=== PATIENT | female | born 1955 | race Caucasian/White ===

== ENCOUNTER 2016-11-15 08:50 | Emergency (ER) | payer OTHER ==
[2016-11-15 09:32] VITALS: BP 133/61
--- NOTE | 2016-11-15 09:44 | UC ---
Lower Extremity/Ankle HPI - HPI Summary HPI Summary: 61 yo female with left foot pain x 6 days no trauma progressive swelling and pain - History of Current Complaint Chief Complaint: UCLowerExtremity Stated Complaint: FOOT PAIN Time Seen by Provider: 11/15/16 09:21 Onset/Duration: Gradual Onset, Lasting Days Severity Initially: Mild Severity Currently: Mild Pain Intensity: 3 - worse with wt bearing Pain Scale Used: 0-10 Numeric Aggravating Factor(s): Standing, Ambulation Alleviating Factor(s): Rest, Elevation Able to Bear Weight: Yes - Allergies/Home Medications Allergies/Adverse Reactions: Allergies Allergy/AdvReac Type Severity Reaction Status Date / Time No Known Allergies Allergy Verified 11/15/16 09:25 PMH/Surg Hx/FS Hx/Imm Hx Previously Healthy: Yes Endocrine History: Dyslipidemia Cardiovascular History: Hypertension - Surgical History Surgical History: None - Family History Known Family History: Positive: Hypertension, Other - gout - Social History Alcohol Use: Occasionally Substance Use Type: None Smoking Status (MU): Never Smoked Tobacco Review of Systems Constitutional: Negative Skin: Negative Eyes: Negative ENT: Negative Respiratory: Negative Cardiovascular: Negative Gastrointestinal: Negative Genitourinary: Negative Motor: Negative Neurovascular: Negative Musculoskeletal: Myalgia Neurological: Negative Psychological: Negative All Other Systems Reviewed And Are Negative: Yes Physical Exam Triage Information Reviewed: Yes Appearance: Well-Appearing, No Pain Distress, Well-Nourished Vital Signs: Initial Vital Signs Temp 97.8 F 11/15/16 09:27 Pulse 69 11/15/16 09:27 Resp 18 11/15/16 09:27 BP 133/61 11/15/16 09:27 Pulse Ox 100 11/15/16 09:27 Eyes: Positive: Conjunctiva Clear ENT: Positive: Hearing grossly normal. Negative: Nasal congestion, Nasal drainage, Trismus, Muffled/hoarse voice Neck: Positive: Supple, Nontender Respiratory: Positive: Lungs clear, Normal breath sounds, No respiratory distress Musculoskeletal: Positive: Edema @ - dorsum of left foot, Other: - antalgic gait Neurological: Positive: Alert, Muscle Tone Normal Psychological Exam: Normal Skin Exam: Normal Lower Extremity Course/Dx - Course Course Of Treatment: xr reading pending at time of d/c - Differential Dx/Diagnosis Provider Diagnoses: left foot pain and swelling of uncertain cause Discharge - Discharge Plan Condition: Stable Disposition: HOME Patient Education Materials: RICE Therapy (ED), Swollen Joint (ED) Referrals: Campos Vidal MD [Medical Doctor] - 4 Days (if not improved) Additional Instructions: aleve 1-2 twice daily with food as needed for pain Images Feet (Multiple View): 1 - tender/swollen...tender 2MT and MCP
--- NOTE | 2016-11-15 11:17 | RAD ---
Indication: Left foot pain. 3 views of the left foot demonstrates no fracture. No other bone or joint abnormality is noted. IMPRESSION: No fracture of the left foot is present.
== END 2016-11-15 10:22 | disposition home or self-care (01) ==
LOC: UCCORT 08:50
DX: M79.672 Pain in left foot (principal); M79.89 Other specified soft tissue disorders; E78.5 Hyperlipidemia, unspecified; I10 Essential (primary) hypertension
CPT/HCPCS: 99212; G0463

== ENCOUNTER 2018-05-18 16:38 | Emergency (ER) | payer OTHER ==
[2018-05-18] MEDS ORDERED: Ondansetron INJ* 2 MG/ML VIAL IV ONE (16:53)
[2018-05-18] MEDS ORDERED: Morphine VIAL* 4 MG/ML VIAL (1 ml vial) IV ONE (16:53)
[2018-05-18] MEDS ORDERED: Ketorolac INJ* 60 MG/2 ML VIAL IM ONE (16:56)
--- NOTE | 2018-05-18 17:01 | ED ---
Upper Extremity Pain - HPI Summary HPI Summary: Patient is a 62 y/o F presenting to ED with complaints of right arm pain after slipping on ice and falling. She reports incident occurred 45 minutes ago, notes she landed on her right side. She reports hearing a "crack". Patient denies head injury, neck pain, back pain, hip pain. PMHx of HTN, HLD, PSHx of carpal tunnel surgery on right, FMHx of HTN. On triage, pain is rated 8/10, nothing is noted to aggravate/alleviate Sx. Home medications and allergies are reviewed. - History of Current Complaint Chief Complaint: EDExtremityUpper Stated Complaint: RT ARM INJURY Time Seen by Provider: 05/18/18 16:43 Hx Obtained From: Patient Mechanism Of Injury: Fall From A Standing Position Onset/Duration: Started Minutes Ago - fell 45 minutes ago, Still Present Timing: Constant, Lasting Minutes Severity Initially: Severe - 8/10 Severity Currently: Severe - 8/10 Pain Location: Arm - right Aggravating Factor(s): Nothing Alleviating Factor(s): Nothing Associated Signs & Symptoms: Positive: Other - NEGATIVE - HIP PAIN, HEAD INJURY. Negative: Back Pain, Neck Pain - Allergies/Home Medications Allergies/Adverse Reactions: Allergies Allergy/AdvReac Type Severity Reaction Status Date / Time No Known Allergies Allergy Verified 11/15/16 09:25 PMH/Surg Hx/FS Hx/Imm Hx Endocrine/Hematology History: Reports: Other Endocrine/Hematological Disorders - HLD Cardiovascular History: Reports: Hx Hypertension Sensory History: Denies: Hx Legally Blind, Hx Deafness Opthamlomology History: Denies: Hx Legally Blind EENT History: Denies: Hx Deafness Infectious Disease History: No Infectious Disease History: Reports: Hx Shingles Denies: Traveled Outside the [place] in Last 30 Days - Family History Known Family History: Positive: Hypertension, Other - gout - Social History Alcohol Use: Occasionally Substance Use Type: Reports: None Smoking Status (MU): Never Smoked Tobacco Review of Systems Negative: Fever - 98 F ON VITALS Positive: Other - POSITIVE - RIGHT ARM PAIN; NEGATIVE - BACK, HIP, NECK PAIN Neurological: Other - NEGATIVE - HEAD INJURY All Other Systems Reviewed And Are Negative: Yes Physical Exam - Summary Physical Exam Summary: VITAL SIGNS: Reviewed. GENERAL: Patient is a well-developed and nourished female who is lying comfortable in the stretcher. Patient is not in any acute respiratory distress. HEAD AND FACE: No signs of trauma. No ecchymosis, hematomas or skull depressions. No sinus tenderness. EYES: PERRLA, EOMI x 2, No injected conjunctiva, no nystagmus. EARS: Hearing grossly intact. Ear canals and tympanic membranes are within normal limits. MOUTH: Oropharynx within normal limits. NECK: Supple, trachea is midline, no adenopathy, no JVD, no carotid bruit, no c- spine tenderness, neck with full ROM. CHEST: Symmetric, no tenderness at palpation LUNGS: Clear to auscultation bilaterally. No wheezing or crackles. CVS: Regular rate and rhythm, S1 and S2 present, no murmurs or gallops appreciated. ABDOMEN: Soft, non-tender. No signs of distention. No rebound no guarding, and no masses palpated. Bowel sounds are normal. EXTREMITIES: Deformity of right humerus, good pulses, good cap refill, patient is neurovascularlly intact, no edema, no cyanosis or clubbing. NEURO: Alert and oriented x 3. No acute neurological deficits. Speech is normal and follows commands. SKIN: Dry and warm Triage Information Reviewed: Yes Vital Signs On Initial Exam: Initial Vitals Temp Pulse Resp BP Pulse Ox 98 F 74 16 146/73 100 05/18/18 16:42 05/18/18 16:42 05/18/18 16:42 05/18/18 16:42 05/18/18 16:42 Vital Signs Reviewed: Yes Procedures - Splinting Right Upper Extremity Splint: ROBERT cock up splint Diagnostics - Vital Signs Vital Signs Temp Pulse Resp BP Pulse Ox 05/18/18 16:42 98 F 74 16 146/73 100 - Laboratory Lab Statement: Any lab studies that have been ordered have been reviewed, and results considered in the medical decision making process. - Radiology RIGHT SHOULDER X-RAY Radiology Interpretation Completed By: Radiologist Summary of Radiographic Findings: RIGHT SHOULDER X-RAY IMPRESSION: No fracture of the right shoulder is noted. THIS REPORT WAS REVIEWED BY ED PHYSICIAN. RIGHT HUMERUS X-RAY Radiology Interpretation Completed By: Radiologist Summary of Radiographic Findings: RIGHT HUMERUS X-RAY IMPRESSION: No fracture of the right humerus is noted. THIS REPORT WAS REVIEWED BY ED PHYSICIAN. RIGHT HAND X-RAY Radiology Interpretation Completed By: ED Physician Summary of Radiographic Findings: No acute fracture dislocation, pending official report. RIGHT FOREARM X-RAY Radiology Interpretation Completed By: ED Physician Summary of Radiographic Findings: No acute fracture dislocation, pending official report. Re-Evaluation - Re-Evaluation First Eval Re-Evaluation Time: 18:40 Change: Improved Comment: The patient was given Toradol and the symptoms have significantly improved. Patient had also received splint for wrist. At this time the patient will be discharged home with follow-up with PCP. She was recommended to return to the emergency department or see the primary care physician in the pain returns or continues. All questions were addressed and she has no further concerns. Course/Dx - Course Assessment/Plan: Patient is a 62 y/o F presenting to ED with complaints of right arm pain after slipping on ice and falling. She reports incident occurred 45 minutes ago, notes she landed on her right side. She reports hearing a "crack ". Patient denies head injury, neck pain, back pain, hip pain. PMHx of HTN, HLD , PSHx of carpal tunnel surgery on right, FMHx of HTN. On triage, pain is rated 8/10, nothing is noted to aggravate/alleviate Sx. Home medications and allergies are reviewed. X-ray of the right shoulder he impression: No fracture or dislocation of the right shoulder. X-ray of the right humerus impression: No fracture of the right humerus. X-ray of the right opal, wrist and hand shows no acute fracture dislocation. At this point I placed the patient in a wrist splint since the patient is having some pain in the wrist. The patient was given Toradol and the symptoms have significantly improved. At this time the patient will be discharged home with follow-up with PCP. She was recommended to return to the emergency department or see the primary care physician if the pain returns or continues. All questions were addressed and she has no further concerns. - Diagnoses Provider Diagnoses: Upper extremity pain Discharge - Sign-Out/Discharge Documenting (check all that apply): Patient Departure - discharge - Discharge Plan Condition: Stable Disposition: HOME Patient Education Materials: Shoulder Pain (ED), Arm Pain (ED) Referrals: Kenan Gomez MD [Medical Doctor] - Brenna Salmon [Primary Care Provider] - 3 Days Additional Instructions: Follow up with ortho keep arm in sling ice area RETURN TO ED FOR NEW OR WORSENING SYMPTOMS. FOLLOW UP WITH YOUR PRIMARY CARE PHYSICIAN IN 2-3 DAYS. - Billing Disposition and Condition Condition: STABLE Disposition: Home - Attestation Statements Document Initiated by Abilio: Yes Documenting Scribe: DAVI REILLY Provider For Whom Scribe is Documenting (Include Credential): MATT RICHARD MD Scribe Attestation: IDAVI , scribed for AMTT RICHARD MD on 05/20/18 at 2125. Scribe Documentation Reviewed: Yes Provider Attestation: The documentation as recorded by the DAVI arias accurately reflects the service I personally performed and the decisions made by me, MATT RICHARD MD Status of Scribe Document: Viewed
--- OUTSIDE RECORDS SUMMARY | 2018-05-18 17:10 | XMS REPORT | Continuity of Care Document ---
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 Type Date Identification Numbers Payment Provider Subscriber Effective: Policy Number: [id number] Lifetime Benefit SLNS Samantha Rausch 2012 Group Number: [id number] [id number] PayID: [facility] [place] [address] Advance Directives Description No Information Available Problems Date Description Provider Status Onset: 10/22/2006 Benign essential hypertension Active Onset: 10/22/2006 Pure hypercholesterolemia Active Onset: 09/16/2007 Allergic rhinitis due to pollen Marie Arizmendi MD Active Onset: 03/07/2013 Gastroesophageal reflux disease DigioBaldev 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, 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 Active Onset: 03/07/2013 Vitamin D deficiency Hillary Alvaradoricia, 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 Active Onset: 08/29/2012 Generalized anxiety disorder DigiovanHillary rivasAbldev, 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 Active Onset: 01/14/2010 Overweight DigiovanHillary rivasBaldev, 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 Active Onset: 10/01/2014 Mixed hyperlipidemia DigiovannaHillaryBaldev, 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 Active Onset: 04/23/2015 Essential hypertension Digiovanna Baldev, 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 Active Onset: 11/12/2017 Solitary nodule of lung DigioHillary schofieldricia, 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 Active Onset: 11/12/2017 Osteochondropathy DigiovannaHillaryBaldev, 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 Active Family History Date Family Member(s) Problem(s) Comments Father Hypertension Father Hypercholesterolemia Mother Hypertension Mother Hypercholesterolemia Paternal Grandfather Heart Disease Maternal Grandmother Stroke Social History Type Date Description Comments Sex Unknown Education Highest level completed, 12th grade Marital Status 2 KIDS Lives With Spouse Occupation Retired November 2017, former [employer] Tobacco Use Start: Unknown Never Smoked Cigarettes ETOH Use Rarely consumes alcohol Allergies, Adverse Reactions, Alerts Date Description Reaction Status Severity Comments 09/25/2013 Ciprofloxacin severe diarrhea Active 07/09/2006 NKDA Inactive Medications Medication Date Status Form Strength Qnty SIG Indications Ordering Provider Valsartan-[place] 05/10/ Active Tablets 160-12.5m 90tabs take one I10 Digiovann chlorothiazide 2016 g tablet by a, mouth Baldev, every day 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 Vitamin D 05/10/ Active Tablets 1999Unit takes E55.9 Digiovann 2016 1-2x/week aBaldev, 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 Venlafaxine HCL 11/10/ Active Tablets 37.5mg 90tabs 1 by F41.1 Xochitliovann 2016 mouth in a, morning Baldev, 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 Multi-Vitamin 10/30/ Active Tablets 1 po qd E55.9 Digiovann 2008 aBaldev, 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 Simvastatin 10/30/ Active Tablets 20mg 90tabs take one E78.2 Digiovann 2008 tablet by a, mouth Baldev, every day 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 Latanoprost / Active Solution 0.005% 1 drop in Unknown 0000 each eye at bedtime Famciclovir 11/17/ Hx Tablets 500mg 21tabs 1 tablet B02.9 Harjinder, 2018 - by mouth Rojas, 11/24/ three DO 2018 times daily for 7 days Amitriptyline 11/17/ Hx Tablets 10mg 14tabs 1 by B02.9 Grande, HCL 2017 - mouth at Rojas, 05/16/ bedtime DO 2017 Venlafaxine HCL 12/29/ Hx Tablets 50mg 15tabs Take 06/15 F41.1 Digiovann 2015 - pill a, 11/10/ daily Baldev, 2016 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 Venlafaxine HCL 09/24/ Hx Tablets 37.5mg 30tabs take one F41.1 Digiovann 2011 - tablet by a, 12/29/ mouth Baldev, 2015 every day 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 Omeprazole 05/27/ Hx Capsules DR 20mg 30caps 1 daily K21.9 Digiovann 2010 - po as a, 10/26/ needed Baldev, 2016 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 Calcium 10/30/ Hx Chewtabs 500mg 600 MG 1 E55.9 Digiovann Carbonate 2008 - qd a, Antacid 02/12/ Baldev, 2015 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 Aspirin Low 10/30/ Hx Chewtabs 81mg daily Digiovann Dose 2009 - a, 10/01/ Baldev, 2014 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 Diovan HCT 10/30/ Hx Tablets 160-12.5 30tabs Take One Digiovann 2008 - Tablet By a, 10/01/ Mouth Baldev, 2014 Every Day 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 Amoxicillin/Cla 08/16/ Hx Tablets 875mg 20tabs bid x 461.0 lee Tom 2008 - 10 days Pelon Fisher Potassium 10/01/ 2014 Azithromycin 04/19/ Hx Tablets 250mg 6tabs 2 po Negro, 2007 - day 1 Pelon Fisher 08/16/ subhash Rodriguez MD 2008 po qd x 4days Aspirin 09/15/ Hx Tablets 81mg 1 PO qd Kyleigh, 2007 - Marie 08/16/ MD Sheree 2008 Zocor 11/30/ Hx Tablets 20mg 30tabs 1 PO qd Negro, 2006 - Pelon Fisher 10/01/ 2014 Drea 10/22/ Hx Tablets 60mg 60tabs 1 PO bid Joshua, 2006 - Alvina, 09/15/ N.P. 2008 Nasonex 10/22/ Hx Suspension 50mcg/Act Sample Joshua, 2006 - Alvina, 09/15/ N.P. 2008 Zithromax Z-Jesus 07/09/ Hx Tablets 250mg 1Pak as Joshua, 2006 - Directed Alvina, 07/19/ N.P. 2007 Duratuss GP 07/09/ Hx Tablets 1200mg;12 24tabs 1 PO Q 12 Joshua, 2006 - 0 mg H Alvina, 10/22/ N.P. 2006 Anaprox DS 04/14/ Hx Tablets 550mg 30tabs 1 po q 12 Joshua, 2004 - hrs Alvina, 08/16/ N.P. 2009 Lipitor 01/12/ Hx Tablets 10mg 90tabs 1 po qd Joshua, 2004 - Alvina, 11/30/ N.P. 2007 Diovan HCT 12/09/ Hx Tablets 160-12.5m 30tabs Take One I10 Digiovann 2005 - g Tablet By travis, 05/10/ Mouth Baldev, 2017 Every Day 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 Prempro / Hx Tablets 0.3-1.5 2X qweek Unknown 0000 - 2014 Immunizations CPT Code Status Date Vaccine Reaction Lot # [id number] Given 05/11/2018 Flu Vaccine NOS Pt states she got her flu shot at [facility] [employer] [facility] in [facility],EGG SETTER 05/16/18 96494 Given 04/01/2017 Influenza Vac, 3 Yrs & Older, given at [facility] Quadrivalent, [place] [address] Given 03/08/2016 Influenza Virus [place] Vaccine,Quadrivalent,Split,Pr eserv Free 3 Yrs+ [address] Given 03/16/2015 Influenza Virus [facility] Vaccine,Quadrivalent,Split,Pr eserv Free 3 Yrs+ [address] Given 10/01/2014 Pneumococcal 23 Immunization [id number] Adult Or Immunosuppressed Patient 21117 Given 04/05/2014 Afluria Or Fluvirin Flu Vac KINNEYs Intramuscular Q2038 Given 02/21/2013 Fluzone Trivalent Immunization Q2038 Given 02/21/2013 Fluzone Trivalent [id number] Immunization 85293 Given 02/20/2011 Afluria Or Fluvirin Flu Vac Intramuscular 98561 Given 04/26/2008 Afluria Or Fluvirin Flu Vac Intramuscular Vital Signs Date Vital Result Comment 05/16/2018 10:15am Weight 156.00 lb Heart Rate 64 /min BP Systolic 124 mmHg BP Diastolic 80 mmHg Respiratory Rate 16 /min Height 59 inches 4'11" 11/12/17 BMI (Body Mass Index) 31.5 kg/m2 11/17/2017 1:03pm Body Temperature 98.6 F Weight 154.00 lb Heart Rate 70 /min BP Systolic 148 mmHg BP Diastolic 76 mmHg Respiratory Rate 18 /min Height 59 inches 4'11" 11/12/17 BMI (Body Mass Index) 31.1 kg/m2 11/12/2017 8:26am Weight 155.00 lb Heart Rate 68 /min BP Systolic 140 mmHg BP Diastolic 60 mmHg BP Systolic Recheck 136 mmHg BP Diastolic Recheck 76 mmHg Respiratory Rate 18 /min Height 59 inches 4'11" 11/12/17 BMI (Body Mass Index) 31.3 kg/m2 05/10/2017 9:47am Weight 156.00 lb Heart Rate 60 /min BP Systolic 132 mmHg BP Diastolic 80 mmHg Respiratory Rate 14 /min Height 59 inches 4'11" BMI (Body Mass Index) 31.5 kg/m2 10/26/2016 8:27am Weight 156.00 lb Heart Rate 74 /min BP Systolic 122 mmHg BP Diastolic 80 mmHg Respiratory Rate 18 /min Height 59 inches 4'11" BMI (Body Mass Index) 31.5 kg/m2 05/05/2016 8:23am Weight 153.00 lb Heart Rate 72 /min BP Systolic 118 mmHg BP Diastolic 82 mmHg Respiratory Rate 18 /min Height 59.5 inches 4'11.50" BMI (Body Mass Index) 30.4 kg/m2 02/04/2016 3:36pm Weight 150.00 lb Heart Rate 76 /min BP Systolic 130 mmHg BP Diastolic 74 mmHg Respiratory Rate 16 /min Height 58.5 inches 4'10.50" (10/2015) BMI (Body Mass Index) 30.8 kg/m2 10/22/2015 8:24am Weight 146.00 lb Heart Rate 76 /min BP Systolic 130 mmHg BP Diastolic 78 mmHg Respiratory Rate 17 /min Height 58.5 inches 4'10.50" (10/2015) BMI (Body Mass Index) 30.0 kg/m2 04/23/2015 8:27am Weight 152.00 lb Heart Rate 78 /min BP Systolic 132 mmHg L/Reg BP Diastolic 84 mmHg L/Reg Respiratory Rate 17 /min Height 59 inches 4'11" BMI (Body Mass Index) 30.7 kg/m2 12/18/2014 3:55pm Body Temperature 99.3 F Weight 149.00 lb BP Systolic 120 mmHg BP Diastolic 76 mmHg Respiratory Rate 18 /min Height 59 inches 4'11" BMI (Body Mass Index) 30.1 kg/m2 10/01/2014 8:33am Weight 148.00 lb Heart Rate 70 /min BP Systolic 128 mmHg BP Diastolic 72 mmHg Respiratory Rate 18 /min Height 59 inches 4'11" BMI (Body Mass Index) 29.9 kg/m2 04/02/2014 8:35am BP Systolic 122 mmHg BP Diastolic 70 mmHg 04/02/2014 8:35am Weight 148.00 lb Down 1# Heart Rate 66 /min BP Systolic 142 mmHg R/Reg BP Diastolic 86 mmHg R/Reg Respiratory Rate 18 /min Height 59.4 inches 4'11.40" 01/19/2014 4:04pm Body Temperature 98.5 F Weight 149.00 lb Heart Rate 78 /min BP Systolic 120 mmHg BP Diastolic 74 mmHg Respiratory Rate 18 /min 12/13/2013 3:32pm Body Temperature 99.2 F Weight 146.00 lb Heart Rate 72 /min BP Systolic 138 mmHg BP Diastolic 70 mmHg Respiratory Rate 18 /min 08/23/2008 3:41pm Body Temperature 98.3 F Weight 147.00 lb Heart Rate 67 /min BP Systolic 116 mmHg BP Diastolic 72 mmHg Height 59.75 inches 4'11.75" O2 % BldC Oximetry 99 % BMI (Body Mass Index) 28.9 kg/m2 08/16/2008 4:15pm Body Temperature 97.9 F Weight 147.00 lb Heart Rate 76 /min BP Systolic 100 mmHg BP Diastolic 64 mmHg O2 % BldC Oximetry 98 % 04/19/2008 3:39pm Body Temperature 97.9 F Weight 143.00 lb Heart Rate 71 /min BP Systolic 104 mmHg BP Diastolic 64 mmHg Height 59.5 inches 4'11.50" O2 % BldC Oximetry 95 % BMI (Body Mass Index) 28.4 kg/m2 09/16/2007 3:01pm Weight 144.00 lb Heart Rate 71 /min BP Systolic 125 mmHg BP Diastolic 79 mmHg 10/22/2006 9:18am Weight 138.00 lb Heart Rate 80 /min BP Systolic 140 mmHg BP Diastolic 80 mmHg 05/02/2006 10:53am Weight 142.00 lb Heart Rate 78 /min BP Systolic 130 mmHg BP Diastolic 74 mmHg 09/08/2005 3:45pm Body Temperature 98.0 F Weight 145.00 lb Heart Rate 64 /min BP Systolic 122 mmHg BP Diastolic 80 mmHg 04/14/2005 3:16pm Body Temperature 98.8 F Weight 139.00 lb Heart Rate 72 /min BP Systolic 146 mmHg BP Diastolic 90 mmHg 01/12/2005 11:17am Body Temperature 98.7 F Weight 136.00 lb Heart Rate 64 /min BP Systolic 120 mmHg BP Diastolic 70 mmHg Results Test Date Facility Test Result H/L Range Note Laboratory test 05/10/2018 [place] Vitamin D 25 Hydroxy 28 ng/mL Low 30- 100 1 finding Lipid Treatment 05/10/2018 [facility] Cholesterol 182 mg/dL 50-199 Triglycerides 193 mg/dL 30-200 HDL 47 mg/dL 35-85 2 Chol/ HDL Ratio 3.9 ratio 3.7-5.6 VLDL 39 mg/dL High 2-29 LDL (Calc) 96 mg/dL 20-99 3 Alt 17 U/L 3-42 Ast 20 U/L 8-42 Basic (BMP) 05/10/2018 [facility] Sodium 139 mmol/L 135-146 4 Potassium 4.4 mmol/L 3.5-5.2 Chloride# 103 mmol/L 97-110 5 Carbon Dioxide 28 mmol/L 24-34 Glucose 85 mg/dL 70-105 BUN 21 mg/dL 6-26 Creatinine 0.9 mg/dL 0.5-1.4 Calcium 9.5 mg/dL 8.5-10.2 Non Nafisa Egfr >60 >60 6 Nafisa Egfr >60 >60 7 Anion Gap 8 mmol/L 5-15 8 CBC with Auto Diff-fcmg 05/10/2018 [facility] WBC 5.8 K/uL 4.1-11.0 RBC 4.75 M/uL 4.00-5.40 Hemoglobin 14.8 gm/dL 12.0-16.0 Hematocrit 44.1 % 36.0-47.0 MCV 92.9 fL 80.0-97.0 MCH 31.2 pg 27.0-32.0 MCHC 33.6 g/dL 32.0-36.0 RDW 12.7 % 11.5-14.5 PLT Count 282 K/ul 140-400 MPV 7.4 FL 7.1-10.7 Neutrophil 51.1 % 35.0-75.0 Lymphocyte 34.2 % 16.0-52.0 Monocyte 9.7 % 2.0-10.0 Eosinophil 3.9 % 0.0-5.0 Basophil 1.1 % 0.0-4.0 Abs Neutrophils 2.9 K/uL 2.1-8.0 Abs Lymphocytes 2.0 K/uL 0.8-5.5 Abs Monocytes 0.6 K/uL 0.1-1.0 Abs Eosinophils 0.2 K/uL 0.0-0.5 Abs Basophils 0.1 K/uL 0.0-0.3 Laboratory test finding 11/17/2017 [facility] Lipase 19 U/L 11-82 CBC with Auto Diff-fcmg 11/17/2017 [facility] WBC 6.0 K/uL 4.1-11.0 RBC 4.61 M/uL 4.00-5.40 Hemoglobin 14.8 gm/dL 12.0-16.0 Hematocrit 42.7 % 36.0-47.0 MCV 92.6 fL 80.0-97.0 MCH 32.0 pg 27.0-32.0 MCHC 34.6 g/dL 32.0-36.0 RDW 12.9 % 11.5-14.5 PLT Count 268 K/ul 140-400 MPV 7.3 FL 7.1-10.7 Neutrophil 61.4 % 35.0-75.0 Lymphocyte 26.0 % 16.0-52.0 Monocyte 9.5 % 2.0-10.0 Eosinophil 2.5 % 0.0-5.0 Basophil 0.6 % 0.0-4.0 Abs Neutrophils 3.7 K/uL 2.1-8.0 Abs Lymphocytes 1.6 K/uL 0.8-5.5 Abs Monocytes 0.6 K/uL 0.1-1.0 Abs Eosinophils 0.1 K/uL 0.0-0.5 Abs Basophils 0.0 K/uL 0.0-0.3 Comprehensive Met Panel-FCMG 11/17/2017 [facility] Sodium 141 mmol/L 135- 146 9 Potassium 4.1 mmol/L 3.5-5.2 Chloride# 103 mmol/L 97-110 10 Carbon Dioxide 30 mmol/L 24-34 Glucose 91 mg/dL 70-105 BUN 17 mg/dL 6-26 Creatinine 0.9 mg/dL 0.5-1.4 Calcium 10.0 mg/dL 8.5-10.2 Total Protein 7.1 g/dL 6.0-8.0 Albumin 4.6 g/dL 3.6-4.9 Globulin 2.5 g/dL 2.0-3.5 A/G Ratio 1.8 Ratio 1.0-2.2 Total Bilirubin 0.4 mg/dL 0.1-1.3 Alkaline Phosphatase 41 U/L 24-140 Alt 16 U/L 3-42 Ast 24 U/L 8-42 Nafisa Egfr >60 >60 11 Non Nafisa Egfr >60 >60 12 Anion Gap 8 mmol/L 5-15 13 Lipid 11/01/2017 [facility] Cholesterol 175 mg/dL 50-199 14 Triglycerides 183 mg/dL 30-200 HDL 49 mg/dL 35-85 15 Chol/ HDL Ratio 3.6 ratio Low 3.7-5.6 VLDL 37 mg/dL High 2-29 LDL (Calc) 90 mg/dL 20-99 16 Basic (BMP) 11/01/2017 [facility] Sodium 141 mmol/L 135-146 17 Potassium 4.3 mmol/L 3.5-5.2 Chloride# 102 mmol/L 97-110 18 Carbon Dioxide 28 mmol/L 24-34 Glucose 88 mg/dL 70-105 BUN 14 mg/dL 6- Creatinine 0.9 mg/dL 0.5-1.4 Calcium 9.7 mg/dL 8.5-10.2 Non Nafisa Egfr >60 >60 19 Nafisa Egfr >60 >60 20 Anion Gap 11 mmol/L 5-15 21 Laboratory test finding 05/10/2017 [facility] Vit D25oh 35 ng/mL 31-100 Lipid Treatment 05/10/2017 [facility] Cholesterol 185 mg/dL 50-199 Triglycerides 173 mg/dL 30-200 HDL 52 mg/dL 35-85 22 Chol/ HDL Ratio 3.6 ratio Low 3.7-5.6 VLDL 35 mg/dL High 2-29 LDL (Calc) 99 mg/dL 20-99 23 Alt 17 U/L 3-42 Ast 19 U/L 8-42 Basic (BMP) 05/10/2017 [facility] Sodium 142 mmol/L 135-146 24 Potassium 4.8 mmol/L 3.5-5.2 Chloride# 104 mmol/L 97-110 25 Carbon Dioxide 29 mmol/L 24-34 Glucose 85 mg/dL 70-105 Creatinine 1.0 mg/dL 0.5-1.4 Calcium 9.6 mg/dL 8.5-10.2 Non Nafisa Egfr 54 Low >60 26 Nafisa Egfr >60 >60 27 Anion Gap 9 mmol/L 7-16 28 BUN 21 mg/dL 6-26 Lipid Treatment 10/26/2016 [facility] Cholesterol 181 mg/dL 50-199 Triglycerides 145 mg/dL 30-200 HDL 55 mg/dL 35-85 29 Chol/ HDL Ratio 3.3 ratio Low 3.7-5.6 VLDL 29 mg/dL 2-29 LDL (Calc) 97 mg/dL 20-99 30 Alt 13 U/L 3-42 Ast 20 U/L 8-42 Basic (BMP) 10/26/2016 [facility] Sodium 143 mmol/L 135-146 31 Potassium 4.7 mmol/L 3.5-5.2 Chloride# 106 mmol/L 97-110 32 Carbon Dioxide 25 mmol/L 24-34 Glucose 80 mg/dL 70-105 BUN 17 mg/dL 6-26 Creatinine 1.0 mg/dL 0.5-1.4 Calcium 9.3 mg/dL 8.5-10.2 Non Nafisa Egfr 58 Low >60 33 Nafisa Egfr >60 >60 34 Anion Gap 17 mmol/L High 7-16 35 CBC With Auto Diff 05/05/2016 [facility] WBC 6.1 K/uL 4.1-11.0 RBC 4.40 M/uL 4.00-5.40 Hemoglobin 13.9 gm/dL 12.0-16.0 Hematocrit 41.2 % 36.0-47.0 MCV 93.6 fL 80.0-97.0 MCH 31.7 pg 27.0-32.0 MCHC 33.9 g/dL 32.0-36.0 RDW 12.5 % 11.5-14.5 PLT Count 266 K/ul 140-400 Neutrophil 56.4 % 35.0-75.0 Lymphocyte 29.8 % 16.0-52.0 Monocyte 9.2 % 2.0-10.0 Eosinophil 3.6 % 0.0-5.0 Basophil 1.0 % 0.0-4.0 Abs Neutrophils 3.4 K/uL 2.1-8.0 Abs Lymphocytes 1.8 K/uL 0.8-5.5 Abs Monocytes 0.6 K/uL 0.1-1.0 Abs Eosinophils 0.2 K/uL 0.0-0.5 Abs Basophils 0.1 K/uL 0.0-0.3 Basic (BMP) 05/05/2016 [facility] Sodium 138 mmol/L 134-142 Potassium 4.3 mmol/L 3.5-5.2 Chloride 103 mmol/L 97-109 Carbon Dioxide 29 mmol/L 24-34 Glucose 86 mg/dL 70-105 BUN 20 mg/dL 6-26 Creatinine 0.8 mg/dL 0.5-1.4 Calcium 9.5 mg/dL 8.5-10.2 Anion Gap 10 mmol/L 6-14 Non Nafisa Egfr >60 >60 36 Nafisa Egfr >60 >60 37 Lipid Treatment 05/05/2016 [facility] Cholesterol 181 mg/dL 50-199 Triglycerides 160 mg/dL 30-200 HDL 56 mg/dL 35-85 38 Chol/ HDL Ratio 3.2 ratio Low 3.7-5.6 VLDL 32 mg/dL High 2-29 LDL (Calc) 93 mg/dL 20-99 39 Alt 14 U/L 3-42 Ast 17 U/L 8-42 Laboratory test finding 05/05/2016 [facility] Vit D,25 Hydroxy 29 ng/mL Low 31-100 TSH 1.75 uIU/mL 0.35-4.94 Laboratory test 10/22/2015 [facility] 40 finding [phone] <SEE NOTE> Basic (BMP) 10/22/2015 [facility] Sodium 139 mmol/L 134-142 Potassium 4.2 mmol/L 3.5-5.2 Chloride 102 mmol/L 97-109 Carbon Dioxide 31 mmol/L 24-34 Glucose 85 mg/dL 70-105 BUN 17 mg/dL 6- Creatinine 0.8 mg/dL 0.5-1.4 Calcium 9.3 mg/dL 8.5-10.2 Anion Gap 10 mmol/L 6-14 Non Nafisa Egfr >60 >60 41 Nafisa Egfr >60 >60 42 Lipid Treatment 10/22/2015 [facility] Cholesterol 186 mg/dL 50-199 Triglycerides 175 mg/dL 30-200 HDL 54 mg/dL 35-85 43 Chol/ HDL Ratio 3.4 ratio Low 3.7-5.6 VLDL 35 mg/dL High 2-29 LDL (Calc) 97 mg/dL 20-99 44 Alt 17 U/L 3-42 Ast 21 U/L 8-42 Laboratory test 10/22/2015 [facility] Pap Smear Thin SEE NOTE 45 finding Prep Laboratory test 04/23/2015 [facility] TSH 1.83 uIU/mL 0.35-4.94 46 finding Vit D,25 Hydroxy 41 ng/mL 31-100 Lipid Treatment 04/23/2015 [facility] Cholesterol 189 mg/dL 50-199 Triglycerides 145 mg/dL 30-200 HDL 50 mg/dL 35-85 47 Chol/ HDL Ratio 3.8 ratio 3.7-5.6 VLDL 29 mg/dL 2-29 LDL (Calc) 110 mg/dL High 20-99 48 Alt 16 U/L 3-42 Ast 19 U/L 8-42 Basic (BMP) 04/23/2015 [facility] Sodium 138 mmol/L 134-142 Potassium 4.2 mmol/L 3.5-5.2 Chloride 103 mmol/L 97-109 Carbon Dioxide 27 mmol/L 24-34 Glucose 86 mg/dL 70-105 BUN 20 mg/dL 6-26 Creatinine 0.9 mg/dL 0.5-1.4 Calcium 9.3 mg/dL 8.5-10.2 Anion Gap 12 mmol/L 6-14 Non Nafisa Egfr >60 >60 49 Nafisa Egfr >60 >60 50 CBC With Auto Diff 04/23/2015 [facility] WBC 4.3 K/uL 4.1-11.0 RBC 4.44 M/uL 4.00-5.40 Hemoglobin 14.0 gm/dL 12.0-16.0 Hematocrit 41.6 % 36.0-47.0 MCV 93.6 fL 80.0-97.0 MCH 31.5 pg 27.0-32.0 MCHC 33.6 g/dL 32.0-36.0 RDW 12.7 % 11.5-14.5 PLT Count 249 K/ul 140-400 Neutrophil 47.9 % 35.0-75.0 Lymphocyte 38.7 % 16.0-52.0 Monocyte 9.4 % 2.0-10.0 Eosinophil 3.4 % 0.0-5.0 Basophil 0.6 % 0.0-4.0 Abs Neutrophils 2.1 K/uL 2.1-8.0 Abs Lymphocytes 1.7 K/uL 0.8-5.5 Abmon 0.4 K/uL 0.1-1.0 Abs Eosinophils 0.1 K/uL 0.0-0.5 Abs Basophils 0.0 K/uL 0.0-0.3 Laboratory test 04/23/2015 [facility] Magnesium 2.0 mg/dL 1.5-2.7 finding Laboratory test 12/18/2014 [facility] Urine Culture Microbiology res 51 finding <SEE NOTE> Basic (BMP) 10/01/2014 [facility] Sodium 138 mmol/L 134-142 Potassium 4.4 mmol/L 3.5-5.2 Chloride 102 mmol/L 97-109 Carbon Dioxide 29 mmol/L 24-34 Glucose 83 mg/dL 70-105 BUN 22 mg/dL 6-26 Creatinine 0.9 mg/dL 0.5-1.4 Calcium 9.3 mg/dL 8.5-10.2 Anion Gap 11 mmol/L 6-14 Non Nafisa Egfr >60 >60 52 Nafisa Egfr >60 >60 53 Lipid Treatment 10/01/2014 [facility] Cholesterol 171 mg/dL 50-199 Triglycerides 153 mg/dL 30-200 HDL 52 mg/dL 35-85 54 Chol/ HDL Ratio 3.3 ratio Low 3.7-5.6 VLDL 31 mg/dL High 2-29 LDL (Calc) 88 mg/dL 20-99 55 Alt 14 U/L 3-42 Ast 19 U/L 8-42 Laboratory test finding 04/02/2014 N2N/CCD Import % Baso. 1.1 % 0.0-2.0 % Eos. 3.2 % 0.0-4.0 % Lymph 32 % 20-44 % [place] 9.1 % 2.0-10.0 % Bam 54 % 50-70 Absolute Baso. 0.1 K/ul 0.0-0.3 Absolute Eos. 0.2 K/ul 0.0-0.5 Absolute Lymph. 1.9 K/ul 0.8-4.8 Absolute [place]. 0.5 K/ul 0.1-1.0 Absolute Bam. 3.20 K/ul 2.05-7.63 Alt 15.0 U/L 9.0-52.0 Ast 22.0 U/L 14.0-36.0 BUN 17.0 mg/dL 7.0-18.0 BUN/Creat Ratio 21.3 ratio High 12.0-20.0 Calcium 10.0 mg/dL 8.7-10.5 Chloride 104.0 mmol/L 98.0-107.0 Co2 27.0 mmol/L 22.0-30.0 Creatinine-Serum 0.8 mg/dL 0.7-1.2 Glucose 91.0 mg/dL 75.0-110.0 HCT 45.7 % 37.0-51.0 HGB 15.3 Gm/dl 12.0-16.0 MCH 30.6 pg 26.0-32.0 MCHC 33.3 g/dL 31.0-36.0 MCV 91.9 Fl 80.0-97.0 MPV 6.0 fL 6.0-10.0 Magnesium 2.3 1.7-2.3 PLT 303 K/ul 140-440 Potasium 4.1 mmol/L 3.6-5.0 RBC 5.0 M/ul 4.2-6.3 RDW 12.1 % 11.5-14.5 Sodium 139.0 mmil/L 137.0-145.0 TSH 1.91 uIU/ml 0.50-6.00 Vitamin D 33.0 ng/mL 30.0-100.0 WBC 5.9 K/ul 4.1-10.9 eGFR 77.8 Lipid Panel 04/02/2014 N2N/CCD Import Chol/HDL Ratio 3.3 ratio Cholesterol 179.0 mg/dL 50.0-199.0 HDL 54.0 mg/dL 29.0-86.0 LDL, Calculated 95.4 mg/dL 20.0-129.0 Triglycerides 148.0 mg/dL 30.0-249.0 vLDL 29.6 ng/dL Laboratory test 01/19/2014 N2N/CCD Import Cytology See Note 56 finding Laboratory test 01/19/2014 N2N/CCD Import Culture Urine See Note 57 finding Laboratory test 12/13/2013 N2N/CCD Import Culture Urine See Note 58 finding Laboratory test 09/25/2013 N2N/CCD Import Alt 25.0 U/L 9.0-52.0 finding Ast 28.0 U/L 14.0-36.0 BUN 13.0 mg/dL 7.0-18.0 BUN/Creat Ratio 14.4 ratio 12.0-20.0 Calcium 9.3 mg/dL 8.7-10.5 Chloride 107.0 mmol/L 98.0-107.0 Co2 24.0 mmol/L 22.0-30.0 Creatinine-Serum 0.9 mg/dL 0.7-1.2 Glucose 89.0 mg/dL 75.0-110.0 Hepatitis C Antibody Nonreactive Nonreactive [place] 4.1 mmol/L 3.6-5.0 Signal/Cutoff ratio < 0.02 <0.80 59 Sodium 141.0 mmil/L 137.0-145.0 eGFR 68.1 Lipid Panel 09/25/2013 N2N/CCD Import Chol/HDL Ratio 3.0 ratio Cholesterol 128.0 mg/dL 50.0-199.0 HDL 42.0 mg/dL 29.0-86.0 LDL, Calculated 70.4 mg/dL 20.0-129.0 Triglycerides 78.0 mg/dL 30.0-249.0 vLDL 15.6 ng/dL Laboratory test 09/13/2013 N2N/Ebook Glue Import Culture Urine See Note 60 finding Laboratory test 03/07/2013 N2N/CCD Import Magnesium 2.1 mg/dL 1.7-2.3 finding Lipid Panel 03/07/2013 N2N/CCD Import Chol/HDL Ratio 3.4 ratio Cholesterol 195.0 mg/dL 50.0-199.0 HDL 57.0 mg/dL 29.0-86.0 LDL, Calculated 112.8 mg/dL 20.0-129.0 Triglycerides 126.0 mg/dL 30.0-249.0 vLDL 25.2 ng/dL Laboratory test finding 03/07/2013 N2N/CCD Import % Baso. 0.8 % 0.0-2.0 % Eos. 3.5 % 0.0-4.0 % Lymph 29 % 20-44 % [place] 8.7 % 2.0-10.0 % Bam 58 % 50-70 Absolute Baso. 0.0 K/ul 0.0-0.3 Absolute Eos. 0.2 K/ul 0.0-0.5 Absolute Lymph. 1.6 K/ul 0.8-4.8 Absolute [place]. 0.5 K/ul 0.1-1.0 Absolute Bam. 3.08 K/ul 2.05-7.63 Alt 16.0 U/L 9.0-52.0 Ast 20.0 U/L 14.0-36.0 BUN 16.0 mg/dL 7.0-18.0 BUN/Creat Ratio 17.8 ratio 12.0-20.0 Calcium 9.7 mg/dL 8.7-10.5 Chloride 105.0 mmol/L 98.0-107.0 Co2 28.0 mmol/L 22.0-30.0 Creatinine-Serum 0.9 mg/dL 0.7-1.2 Glucose 86.0 mg/dL 75.0-110.0 HCT 43.1 % 37.0-51.0 HGB 13.5 Gm/dl 12.0-16.0 MCH 30.2 pg 26.0-32.0 MCHC 31.2 g/dL 31.0-36.0 MCV 96.7 Fl 80.0-97.0 MPV 5.9 fL Low 6.0-10.0 PLT 302 K/ul 140-440 Potasium 4.2 mmol/L 3.6-5.0 RBC 4.5 M/ul 4.2-6.3 RDW 11.9 % 11.5-14.5 Sodium 142.0 mmil/L 137.0-145.0 TSH 1.12 uIU/ml 0.50-6.00 WBC 5.4 K/ul 4.1-10.9 eGFR 68.1 Rast 1 Panel 08/20/2008 [facility] (Do not Use) D Pteronyssinus Conc 2.400 61 [facility] [place] [address] [phone] D Pteronyssinus Class 3 CLASS Cat Epithelium Conc 0.170 Cat Epithelium Class 2 CLASS Alternaria Conc 0.000 Alternaria Class 0 CLASS Cladosporium Conc 0.000 Cladosporium Class 0 CLASS Armen Conc 0.000 Armen Class 0 CLASS Carlton/Maple Conc 0.000 Carlton/Maple Class 0 CLASS Birch Conc 0.000 Birch Class 0 CLASS Ragweed Conc 0.000 Ragweed Class 0 CLASS Aspergillus Conc 0.000 Aspergillus Class 0 CLASS Hazen Conc 0.000 Hazen Class 0 CLASS Bermuda Grass Conc 0.000 B[place]uda Grass Class 0 CLASS House Dust Conc 0.100 House Dust Class 1 CLASS Martino's Quarter Conc 0.000 Martino's Quarter Class 0 CLASS D Farinae Conc 0.740 D Farinae Class 3 CLASS Dog Dander Conc 1.290 Dog Dander Class 3 CLASS Ige, Total 33 IU/mL 0.0-108.0 CBC With Auto Diff 08/20/2008 [facility] (Do not Use) WBC 5.8 K/ul 4.0- 10.9 [facility] [place] [address] [phone] RBC 4.27 M/ul 4.20-5.40 Hemoglobin 13.8 GM/dl 12.5-16.0 Hematocrit 40.3 % 36.0-47.0 MCV 94.3 FL 80.0-97.0 MCH 32.3 pg High 27.0-31.0 MCHC 34.3 g/dL 32.0-36.0 RDW 12.3 % 11.5-14.5 Platelet Count 279 K/ul 140-440 Neutrophils 59.6 % 50-70 Lymphocytes 25.7 % 20-44 Monocytes 9.3 % High 2-9 Eosinophil 4.7 % High 0-4 Basophil 0.7 % 0-2 Absolute Neutrophils 3.5 K/ul 2.05-7.63 Absolute Lymphocytes 1.5 K/ul 0.8-4.8 Absolute Monocytes 0.5 K/ul 0.1-1.0 Absolute Eosinophils 0.3 K/ul 0.1-0.5 Absolute Basophils 0.0 K/ul 0.0-0.3 Hematology Comment (Comm2) N/A Lipid Panel 09/22/2007 [facility] (Do not Use) Cholesterol 192 mg/dL 50 -199 62 [facility] [place] [address] [phone] Triglycerides 130 mg/dL 10-150 HDL 45 mg/dL 35-85 Chol/HDL Ratio 4.3 Ratio VLDL 26 mg/dL LDL (Calc) 121 mg/dL 20-129 CMP 09/22/2007 [facility] (Do not Use) Sodium 141 mmol/L 135-144 [facility] [place] [address] [phone] Potassium 4.4 mmol/L 3.6-5.2 Chloride 107 mmol/L 97-110 Carbon Dioxide 30 mmol/L 23-33 Glucose 84 mg/dL 70-105 BUN 16 mg/dL 6-22 Creatinine 0.8 mg/dL 0.5-1.3 BUN/CR 20 Ratio 12.0-20.0 Calcium 10.1 mg/dL 8.6-10.2 Total Protein 7.0 g/dL 5.8-7.8 Albumin 4.2 g/dL 3.5-4.8 Globulin 2.8 g/dL 2.0-3.5 A/G Ratio 1.5 Ratio 1.0-2.2 Total Bilirubin 0.9 mg/dL 0.3-1.2 Alkaline Phosphatase 32 U/L 24-140 Alt 21 U/L 4-45 Ast 25 U/L 12-40 Anion Gap 8 mmol/L 8-16 GFR Calculation > 60 mL/min 63 GFR For > 60 mL/min 64 CBC With Auto Diff 09/22/2007 [employer] (Do not Use) WBC 5.2 K/ul 4.0- 10.9 [facility] [place] [address] [phone] RBC 4.26 M/ul 4.20-5.40 Hemoglobin 13.7 GM/dl 12.5-16.0 Hematocrit 39.7 % 36.0-47.0 MCV 93.2 FL 80.0-97.0 MCH 32.2 pg High 27.0-31.0 MCHC 34.6 g/dL 32.0-36.0 RDW 11.7 % 11.5-14.5 Platelet Count 308 K/ul 140-440 Neutrophils 49.9 % Low 50-70 Lymphocytes 36.8 % 20-44 Monocytes 7.8 % 2-9 Eosinophil 4.7 % High 0-4 Basophil 0.8 % 0-2 Absolute Neutrophils 2.7 K/ul 2.05-7.63 Absolute Lymphocytes 1.9 K/ul 0.8-4.8 Absolute Monocytes 0.4 K/ul 0.1-1.0 Absolute Eosinophils 0.2 K/ul 0.1-0.5 Absolute Basophils 0.0 K/ul Low 0.1-0.3 Lipid TX Panel 05/10/2006 [employer] (Do not Use) Ast 24 U/L 12-40 [facility] [place] [address] [phone] Alt 18 U/L 4-45 Cholesterol 163 mg/dL 50-199 Triglycerides 129 mg/dL 10-150 HDL 51 mg/dL 35-85 LDL (Calc) 86 mg/dL 20-129 Chol/HDL Ratio 3.2 Ratio VLDL 26 mg/dL Lipid TX Panel 08/06/2005 [employer] (Do not Use) Ast 20 U/L 12-40 [facility] [place] [address] [phone] Alt 18 U/L 4-45 Cholesterol 152 mg/dL 50-199 Triglycerides 120 mg/dL 10-150 HDL 40 mg/dL 35-85 LDL (Calc) 88 mg/dL 20-129 Chol/HDL Ratio 3.8 Ratio VLDL 24 mg/dL Lipid TX Panel 12/04/2004 [employer] (Do not Use) Ast 23 U/L 8-42 [facility] [place] [address] [phone] Alt 20 U/L 3-42 Cholesterol 134 mg/dL 50-199 Triglycerides 119 mg/dL 30-200 HDL 41 mg/dL 35-85 LDL (Calc) 69 mg/dL 20-129 Chol/HDL Ratio 3.3 Ratio VLDL 24 mg/dL Lipid Panel 10/27/2004 [employer] (Do not Use) Cholesterol 214 mg/dL High 50-199 [facility] [place] [address] [phone] Triglycerides 101 mg/dL 30-200 HDL 52 mg/dL 35-85 Chol/HDL Ratio 4.1 Ratio VLDL 20 mg/dL LDL (Calc) 142 mg/dL High 20-129 CBC 10/27/2004 [employer] (Do not Use) WBC 7.2 K/ul 4.1-10.9 [facility] [place] [address] [phone] RBC 4.66 M/ul 4.20-6.30 Hemoglobin 15.4 GM/dl High 12.5-15.0 Hematocrit 46.3 % 37.0-51.0 MCV 99.3 FL High 80.0-97.0 MCH 33.1 pg High 26.0-32.0 MCHC 33.4 g/dL 31.0-36.0 RDW 11.6 % 11.5-14.5 Platelet Count 300 K/ul 140-440 Neutrophils 69.0 % 50-70 Lymphocytes 21.7 % 20-44 Monocytes 7.1 % 2-9 Eosinophil 2.0 % 0-4 Basophil 0.2 % 0-2 Absolute Neutrophils 5.0 K/ul 2.05-7.63 Absolute Lymphocytes 1.6 K/ul 0.8-4.8 Absolute Monocytes 0.5 K/ul 0.1-1.0 Absolute Eosinophils 0.1 K/ul 0.1-0.5 Absolute Basophils 0.0 K/ul Low 0.1-0.3 Basic (BMP) 10/27/2004 [employer] (Do not Use) Sodium 139 mmol/L 135- 145 [facility] [place] [address] [phone] Potassium 4.1 mmol/L 3.4-5.3 Chloride 105 mmol/L 98-111 Carbon Dioxide 25 mmol/L 22-33 Glucose 74 mg/dL 70-105 BUN 17 mg/dL 6-26 Creatinine 1.1 mg/dL 0.5-1.5 BUN/CR 15 Ratio 12.0-20.0 Anion Gap 13 mmol/L 10-20 Calcium 9.9 mg/dL 8.6-10.3 1 Clinical Guidelines for recommended serum 25(OH)Vitamin D Deficient at less than 20 ng/mL Insufficient at 20 to <30 ng/mL Sufficient at 30-100 ng/mL Toxicity at greater than 100 ng/mL 2 Per NCEP ATP III Guidelines: Results lower than 40 mg/dL are suggestive of increased risk for coronary artery disease. Results > or=to 60 mg/dL are considered a negative risk factor. 3 Per NCEP ATP III Guidelines: Normal Population <130 Patients with medical conditions: CHD/DM Optimal: <100 Borderline high: 130-159 High: 160-189 Very high: >189 4 Updated reference range on new analyzer 5 Updated reference range on new analyzer 6 Concerning GFR Guidelines: Normal function or mild renal disease, if clinically at risk: >/=60 mL/min Moderately decreased: 30-59 Severely decreased: 15-29 Renal failure: <15 Glomerular Filtration Rate (GFR) is estimated based on the MDRD equation, which assumes a steady state for creatinine as recommended by the National Kidney Disease Education Program in conjunction with the National Institutes of Health and the National Kidney Foundation. Clinical conditions in which it may be necessary to measure GFR by using clearance methods include extremes of age and body size, severe malnutrition or obesity, diseases of skeletal muscle, paraplegia or quadriplegia, vegetarian diet, rapidly changing kidney function, and calculation of the dose of potentially toxic drugs that are excreted by the kidneys. 7 Concerning GFR Guidelines for Americans: Normal function or mild renal disease, if clinically at risk: >/=60 mL/min Moderately decreased: 30-59 Severely decreased: 15-29 Renal failure: <15 8 Updated Reference Range 9 Updated reference range on new analyzer 10 Updated reference range on new analyzer 11 Concerning GFR Guidelines for Americans: Normal function or mild renal disease, if clinically at risk: >/=60 mL/min Moderately decreased: 30-59 Severely decreased: 15-29 Renal failure: <15 12 Concerning GFR Guidelines: Normal function or mild renal disease, if clinically at risk: >/=60 mL/min Moderately decreased: 30-59 Severely decreased: 15-29 Renal failure: <15 Glomerular Filtration Rate (GFR) is estimated based on the MDRD equation, which assumes a steady state for creatinine as recommended by the National Kidney Disease Education Program in conjunction with the National Institutes of Health and the National Kidney Foundation. Clinical conditions in which it may be necessary to measure GFR by using clearance methods include extremes of age and body size, severe malnutrition or obesity, diseases of skeletal muscle, paraplegia or quadriplegia, vegetarian diet, rapidly changing kidney function, and calculation of the dose of potentially toxic drugs that are excreted by the kidneys. 13 Updated Reference Range 14 to be done September 2017 15 Per NCEP ATP III Guidelines: Results lower than 40 mg/dL are suggestive of increased risk for coronary artery disease. Results > or=to 60 mg/dL are considered a negative risk factor. 16 Per NCEP ATP III Guidelines: Normal Population <130 Patients with medical conditions: CHD/DM Optimal: <100 Borderline high: 130-159 High: 160-189 Very high: >189 17 Updated reference range on new analyzer 18 Updated reference range on new analyzer 19 Concerning GFR Guidelines: Normal function or mild renal disease, if clinically at risk: >/=60 mL/min Moderately decreased: 30-59 Severely decreased: 15-29 Renal failure: <15 Glomerular Filtration Rate (GFR) is estimated based on the MDRD equation, which assumes a steady state for creatinine as recommended by the National Kidney Disease Education Program in conjunction with the National Institutes of Health and the National Kidney Foundation. Clinical conditions in which it may be necessary to measure GFR by using clearance methods include extremes of age and body size, severe malnutrition or obesity, diseases of skeletal muscle, paraplegia or quadriplegia, vegetarian diet, rapidly changing kidney function, and calculation of the dose of potentially toxic drugs that are excreted by the kidneys. 20 Concerning GFR Guidelines for Americans: Normal function or mild renal disease, if clinically at risk: >/=60 mL/min Moderately decreased: 30-59 Severely decreased: 15-29 Renal failure: <15 21 Updated Reference Range 22 Per NCEP ATP III Guidelines: Results lower than 40 mg/dL are suggestive of increased risk for coronary artery disease. Results > or=to 60 mg/dL are considered a negative risk factor. 23 Per NCEP ATP III Guidelines: Normal Population <130 Patients with medical conditions: CHD/DM Optimal: <100 Borderline high: 130-159 High: 160-189 Very high: >189 24 Updated reference range on new analyzer 25 Updated reference range on new analyzer 26 Concerning GFR Guidelines: Normal function or mild renal disease, if clinically at risk: >/=60 mL/min Moderately decreased: 30-59 Severely decreased: 15-29 Renal failure: <15 Glomerular Filtration Rate (GFR) is estimated based on the MDRD equation, which assumes a steady state for creatinine as recommended by the National Kidney Disease Education Program in conjunction with the National Institutes of Health and the National Kidney Foundation. Clinical conditions in which it may be necessary to measure GFR by using clearance methods include extremes of age and body size, severe malnutrition or obesity, diseases of skeletal muscle, paraplegia or quadriplegia, vegetarian diet, rapidly changing kidney function, and calculation of the dose of potentially toxic drugs that are excreted by the kidneys. 27 Concerning GFR Guidelines for Americans: Normal function or mild renal disease, if clinically at risk: >/=60 mL/min Moderately decreased: 30-59 Severely decreased: 15-29 Renal failure: <15 28 Updated reference range on new analyzer 29 Per NCEP ATP III Guidelines: Results lower than 40 mg/dL are suggestive of increased risk for coronary artery disease. Results > or=to 60 mg/dL are considered a negative risk factor. 30 Per NCEP ATP III Guidelines: Normal Population <130 Patients with medical conditions: CHD/DM Optimal: <100 Borderline high: 130-159 High: 160-189 Very high: >189 31 Updated reference range on new analyzer 32 Updated reference range on new analyzer 33 Concerning GFR Guidelines: Normal function or mild renal disease, if clinically at risk: >/=60 mL/min Moderately decreased: 30-59 Severely decreased: 15-29 Renal failure: <15 Glomerular Filtration Rate (GFR) is estimated based on the MDRD equation, which assumes a steady state for creatinine as recommended by the National Kidney Disease Education Program in conjunction with the National Institutes of Health and the National Kidney Foundation. Clinical conditions in which it may be necessary to measure GFR by using clearance methods include extremes of age and body size, severe malnutrition or obesity, diseases of skeletal muscle, paraplegia or quadriplegia, vegetarian diet, rapidly changing kidney function, and calculation of the dose of potentially toxic drugs that are excreted by the kidneys. 34 Concerning GFR Guidelines for Americans: Normal function or mild renal disease, if clinically at risk: >/=60 mL/min Moderately decreased: 30-59 Severely decreased: 15-29 Renal failure: <15 35 Updated reference range on new analyzer 36 Concerning GFR Guidelines: Normal function or mild renal disease, if clinically at risk: >/=60 mL/min Moderately decreased: 30-59 Severely decreased: 15-29 Renal failure: <15 Glomerular Filtration Rate (GFR) is estimated based on the MDRD equation, which assumes a steady state for creatinine as recommended by the National Kidney Disease Education Program in conjunction with the National Institutes of Health and the National Kidney Foundation. Clinical conditions in which it may be necessary to measure GFR by using clearance methods include extremes of age and body size, severe malnutrition or obesity, diseases of skeletal muscle, paraplegia or quadriplegia, vegetarian diet, rapidly changing kidney function, and calculation of the dose of potentially toxic drugs that are excreted by the kidneys. 37 Concerning GFR Guidelines for Americans: Normal function or mild renal disease, if clinically at risk: >/=60 mL/min Moderately decreased: 30-59 Severely decreased: 15-29 Renal failure: <15 38 Per NCEP ATP III Guidelines: Results lower than 40 mg/dL are suggestive of increased risk for coronary artery disease. Results > or=to 60 mg/dL are considered a negative risk factor. 39 Per NCEP ATP III Guidelines: Normal Population <130 Patients with medical conditions: CHD/DM Optimal: <100 Borderline high: 130-159 High: 160-189 Very high: >189 [address] [place] [address] Amplified Molecular High Risk HPV Test Accession Number [id number] Specimen(s) Received A: High Risk HPV Thin Prep Endocervical Pap Smear - One Vial Other Case Numbers: [id number] Diagnosis RISK GROUPS RESULTS High Risk NEGATIVE Tested for HPV Types (16, 18, 31, 33, 35, 39, 45, 51, 52, 56, 58, 59, 66, 68) Reported: 10/25/2015 15:26 Electronically Signed Out By Nely Mast [email or web address] 41 Concerning GFR Guidelines: Normal function or mild renal disease, if clinically at risk: >/=60 mL/min Moderately decreased: 30-59 Severely decreased: 15-29 Renal failure: <15 Glomerular Filtration Rate (GFR) is estimated based on the MDRD equation, which assumes a steady state for creatinine as recommended by the National Kidney Disease Education Program in conjunction with the National Institutes of Health and the National Kidney Foundation. Clinical conditions in which it may be necessary to measure GFR by using clearance methods include extremes of age and body size, severe malnutrition or obesity, diseases of skeletal muscle, paraplegia or quadriplegia, vegetarian diet, rapidly changing kidney function, and calculation of the dose of potentially toxic drugs that are excreted by the kidneys. 42 Concerning GFR Guidelines for Americans: Normal function or mild renal disease, if clinically at risk: >/=60 mL/min Moderately decreased: 30-59 Severely decreased: 15-29 Renal failure: <15 43 Per NCEP ATP III Guidelines: Results lower than 40 mg/dL are suggestive of increased risk for coronary artery disease. Results > or=to 60 mg/dL are considered a negative risk factor. 44 Per NCEP ATP III Guidelines: Normal Population <130 Patients with medical conditions: CHD/DM Optimal: <100 Borderline high: 130-159 High: 160-189 Very high: >189 45 [employer] [facility] [employer] [facility] [place] [address] GYNECOLOGIC CYTOLOGY REPORT Accession Number: [id number] Source of Specimen(s): A: Thin Prep Endocervical Pap Smear - One Vial Clinical Diagnosis and History: Date of Last Menstrual Period: remote Menstrual History: Post-menopausal Other Clinical Conditions: Last Pap Smear: 2014 normal HPV ASSAY REQUESTED Specimen Adequacy Satisfactory for evaluation Presence of endocervical/transformation zone cannot be assessed due to atrophic changes. It may be difficult to distinguish squamous metaplastic cells from parabasal type cells in specimens showing atrophy due to a variety of hormonal changes including menopause, post changes and progestational agents. General Categorization Negative for intraepithelial lesion or malignancy Interpretation NEGATIVE FOR INTRAEPITHELIAL LESION OR MALIGNANCY Recommendations HPV testing will be performed and a separate report will be issued. Reported: 10/24/2015 Electronically Signed Out By Nida LYNN(ASCP) [facility] yuan Unless otherwise specified, testing performed by [facility] [address] [place] [address] 46 Fastin hours 47 Per NCEP ATP III Guidelines: Results lower than 40 mg/dL are suggestive of increased risk for coronary artery disease. Results > or=to 60 mg/dL are considered a negative risk factor. 48 Per NCEP ATP III Guidelines: Normal Population <130 Patients with medical conditions: CHD/DM Optimal: <100 Borderline high: 130-159 High: 160-189 Very high: >189 49 Concerning GFR Guidelines: Normal function or mild renal disease, if clinically at risk: >/=60 mL/min Moderately decreased: 30-59 Severely decreased: 15-29 Renal failure: <15 Glomerular Filtration Rate (GFR) is estimated based on the MDRD equation, which assumes a steady state for creatinine as recommended by the National Kidney Disease Education Program in conjunction with the National Institutes of Health and the National Kidney Foundation. Clinical conditions in which it may be necessary to measure GFR by using clearance methods include extremes of age and body size, severe malnutrition or obesity, diseases of skeletal muscle, paraplegia or quadriplegia, vegetarian diet, rapidly changing kidney function, and calculation of the dose of potentially toxic drugs that are excreted by the kidneys. 50 Concerning GFR Guidelines for Americans: Normal function or mild renal disease, if clinically at risk: >/=60 mL/min Moderately decreased: 30-59 Severely decreased: 15-29 Renal failure: <15 51 Microbiology results SOURCE MIDU FINAL RESULT No growth 52 Concerning GFR Guidelines: Normal function or mild renal disease, if clinically at risk: >/=60 mL/min Moderately decreased: 30-59 Severely decreased: 15-29 Renal failure: <15 Glomerular Filtration Rate (GFR) is estimated based on the MDRD equation, which assumes a steady state for creatinine as recommended by the National Kidney Disease Education Program in conjunction with the National Institutes of Health and the National Kidney Foundation. Clinical conditions in which it may be necessary to measure GFR by using clearance methods include extremes of age and body size, severe malnutrition or obesity, diseases of skeletal muscle, paraplegia or quadriplegia, vegetarian diet, rapidly changing kidney function, and calculation of the dose of potentially toxic drugs that are excreted by the kidneys. 53 Concerning GFR Guidelines for Americans: Normal function or mild renal disease, if clinically at risk: >/=60 mL/min Moderately decreased: 30-59 Severely decreased: 15-29 Renal failure: <15 54 Per NCEP ATP III Guidelines: Results lower than 40 mg/dL are suggestive of increased risk for coronary artery disease. Results > or=to 60 mg/dL are considered a negative risk factor. 55 Per NCEP ATP III Guidelines: Normal Population <130 Patients with medical conditions: CHD/DM Optimal: <100 Borderline high: 130-159 High: 160-189 Very high: >189 56 [facility] [address] [place] [address], [address] [place] [address] CYTOLOGY REPORT Name: Samantha Rausch : 1955 (Age: 58) Sex:F Location: [facility] Med. Rec. # [id number] Date Collected: 01/19/2014 Billing #: [id number] Date Received: 2013 Requisition #: [id number] Physician(s): BALDEV ALVARADO RPA Source of Specimen: URINE Clinical Information Hematuria. 599.70 Gross Description Received 50 cc. of clear yellow fluid. Final Diagnosis NO MALIGNANT CELLS IDENTIFIED. SCATTERED ACUTE INFLAMMATION NOTED. Electronic Signature Jonny Dubon MD Reported: 01/23/2014 Also seen by: SHANE Gomez ([facility]) [facility] ICD-9 Code(s) 57 COLONY COUNT ! >100,000 CFU/ml Organism 1 ! BETA STREPTOCOCCUS GROUP B QUANTITY ! MANY RECOMMENDED THERAPY: ! PENICILLIN OR AMPICILLIN. Organism 2 ! URETHRAL BERNARDO 58 COLONY COUNT ! >100,000 CFU/ml Organism 1 ! ESCHERICHIA COLI QUANTITY ! MANY Organism 2 ! MIXED URETHRAL BERNARDO ESCHERICHIA COLI Target Route Dose M.I.C. RX AB COST ------ ----- -------- ------ -- ------ NITROFURANTOIN <=16 S TRIMETHOPRIM/SULFAMETHOXAZOLE <=20 S AMPICILLIN >=32 R CEFAZOLIN 16 I AMPICILLIN/SULBACTAM >=32 R CIPROFLOXACIN <=0.25 S PIPERACILLIN/TAZOBACTAM <= 4 S CEFTAZIDIME <=1 S CEFTRIAXONE <=1 S CEFEPIME <=1 S LEVOFLOXACIN 1 S IMIPENEM <=0.25 S GENTAMICIN <=1 S TOBRAMYCIN <=1 S 59 Antibodies to HCV not detected; does not exclude early acute HCV infection. 60 COLONY COUNT ! 80,000-100,000 CFU/ml Organism 1 ! BETA STREPTOCOCCUS GROUP B QUANTITY ! MANY RECOMMENDED THERAPY: ! PENICILLIN OR AMPICILLIN. Organism 2 ! URETHRAL BERNARDO 61 This sample is drawn by:KAE SALVADOR Effective 05/30/03 all allergy testing is performed using the [employer] Studior 288 analyzer. 62 FASTING 63 Concerning GFR GUIDELINES: Normal Function or Mild Renal Disease, if clinically at risk: >/=60mL/min Moderately decreased: 30-59 Severely decreased: 15-29 Renal Failure: <15 Glomerular Filtration Rate (GFR) is estimated based on the MDRD equation, which assumes a steady state for creatinine as recommended by the National Kidney Disease Education Program in conjunction with the National Institutes of Health and the National Kidney Foundation. Clinical conditions in which it may be necessary to measure GFR by using clearance methods include extremes of age and body size, severe malnutrition or obesity, diseases of skeletal muscle, paraplegia or quadriplegia, vegetarian diet, rapidly changing kidney function, and calculation of the dose of potentially toxic drugs that are excreted by the kidneys. 64 Concerning GFR GUIDELINES: Normal Function or Mild Renal Disease, if clinically at risk: >/=60mL/min Moderately decreased: 30-59 Severely decreased: 15-29 Renal Failure: <15 Procedures Date Code Description Status 11/12/2017 99878 Remove Impact Cerumen Irrigation/Lavage Completed 05/10/2017 [id number] Mammogram Completed 04/29/2015 [id number] Bone Mineral Density Test Completed 04/29/2015 [id number] Mammogram Completed 10/01/2014 78963 Measure Blood Oxygen Level Single Determination Completed 10/01/2014 39405 Remove Impacted Cerumen Requiring Instrumentation Completed 09/04/2014 [id number] Bone Mineral Density Test Completed 12/12/2013 [id number] Colonoscopy Completed 04/26/2008 40982 Admin Of Inj (Therapeutic,Prophylactic Or Diagnostic Completed Subq Or Intr 09/16/2007 36466 Electrocardiogram Complete Completed Encounters Type Date Location Provider Dx Diagnosis Office Visit 11/17/2017 Aura Petty PA B02.9 [place] without 1:00p complications R10.12 LEFT upper quadrant pain Z68.31 Body mass index (BMI) 31.0-31.9, adult Office Visit 11/12/2017 8:30a [facility] Baldev Alvarado, Z00.00 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 I10 Essential (primary) hypertension E78.2 Mixed hyperlipidemia E55.9 Vitamin D deficiency, unspecified F41.1 Generalized anxiety disorder K21.9 Gastro-esophageal reflux disease without esophagitis R91.1 Solitary pulmonary nodule Z12.31 Encntr screen mammogram for malignant neoplasm of breast M85.80 Oth disrd of bone density and structure, unspecified site H61.21 Impacted cerumen, RIGHT ear Z68.31 Body mass index (BMI) 31.0-31.9, adult Office Visit 05/10/2017 9:30a [facility] Digsaige, Baldev, 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 E78.2 Mixed hyperlipidemia F41.1 Generalized anxiety disorder K21.9 Gastro-esophageal reflux disease without esophagitis R91.1 Solitary pulmonary nodule E55.9 Vitamin D deficiency, unspecified Z68.31 Body mass index (BMI) 31.0-31.9, adult Office Visit 10/26/2016 8:30a [facility] Viky, Baldev, 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 E78.2 Mixed hyperlipidemia F41.1 Generalized anxiety disorder K21.9 Gastro-esophageal reflux disease without esophagitis R91.1 Solitary pulmonary nodule E55.9 Vitamin D deficiency, unspecified Z68.31 Body mass index (BMI) 31.0-31.9, adult Office Visit 05/05/2016 8:30a [facility] Adan Alvaradoia, 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 E78.2 Mixed hyperlipidemia F41.1 Generalized anxiety disorder K21.9 Gastro-esophageal reflux disease without esophagitis Z68.30 Body mass index (BMI) 30.0-30.9, adult R91.1 Solitary pulmonary nodule E55.9 Vitamin D deficiency, unspecified Z12.31 Encntr screen mammogram for malignant neoplasm of breast Office Visit 02/04/2016 3:30p [facility] Baldev Alvarado, F41.1 Generalized anxiety 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 disorder Office Visit 10/22/2015 8:30a [facility] Baldev Alvarado, 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/o abn findings Z68.30 Body mass index (BMI) 30.0-30.9, adult I10 Essential (primary) hypertension E78.2 Mixed hyperlipidemia F41.1 Generalized anxiety disorder K21.9 Gastro-esophageal reflux disease without esophagitis R91.1 Solitary pulmonary nodule E55.9 Vitamin D deficiency, unspecified H61.21 Impacted cerumen, RIGHT ear Z12.31 Encntr screen mammogram for malignant neoplasm of breast Office Visit 04/23/2015 8:30a [facility] Baldev Alvarado, 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 E78.2 Mixed hyperlipidemia F41.1 Generalized anxiety disorder K21.9 Gastro-esophageal reflux disease without esophagitis E55.9 Vitamin D deficiency, unspecified Z68.30 Body mass index (BMI) 30.0-30.9, adult Office Visit 12/18/2014 4:00p Baldev Mckinley 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 788.1 Dysuria 789.9 Abdomen & Pelvis Symptoms Other Z68.30 Body mass index (BMI) 30.0-30.9, adult Office Visit 10/01/2014 8:30a [facility] Baldev Alvarado, 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 401.1 Hypertension Benign 272.2 Hyperlipidemia Mixed 300.02 Anxiety Disorder Generalized 530.81 Esophageal Reflux 477.0 Rhinitis Allergic Due To Pollen 268.9 Vitamin D Deficiency Unspec 278.02 Overweight 380.4 Impacted Cerumen 786.9 Respiratory & Chest Symptoms Other V03.82 Streptococcus Pneumoniae Vaccination Spec Other Office Visit 08/23/2008 3:30p Pelon Chavez MD 461.0 Sinusitis Acute Maxillary 995.3 Allergy Unspec Office Visit 08/16/2008 3:30p Pelon Chavez MD 461.0 Sinusitis Acute Maxillary 786.50 Pain Chest Unspec Office Visit 04/19/2008 3:30p Pelon Chavez MD 461.0 Sinusitis Acute Maxillary 465.9 URI Upper Respiratory Infections Acute Unspec Sites Office Visit 09/16/2007 2:45p Marie Kirby V72.81 Ilia Bentley MD Preoperative Cardiovascular 272.0 Hypercholesterolemia Pure 401.1 Hypertension Benign Office Visit 10/22/2006 9:00a Afsaneh Lewis, 995.3 Allergy Unspec Mashelle, N.P. Office Visit 07/09/2006 10:45a Afsaneh Lewis, 465.8 Upper Respiratory Mashelle, N.P. Infections Acute Other Multiple Sites Office Visit 09/08/2005 3:30p Afsaneh Lewis, 272.0 Hypercholesterolemia Pure Mashelle, N.P. 401.1 Hypertension Benign 388.30 Tinnitus Unspecified Office Visit 04/14/2005 3:00p Alvina Pavon, 726.32 Epicondylitis Lateral N.P. 401.1 Hypertension Benign 272.2 Hyperlipidemia Mixed Office Visit 01/12/2005 10:45a Afsaneh Lewis, 272.0 Hypercholesterolemia Pure Mashelle, N.P. 401.1 Hypertension Benign Office Visit 12/09/2004 10:00a Afsaneh Lewis, 272.0 Hypercholesterolemia Pure Mashelle, N.P. 401.1 Hypertension Benign Office Visit 11/06/2004 10:15a Afsaneh Lewis, 272.0 Hypercholesterolemia Pure Mashelle, N.P. 401.1 Hypertension Benign Office Visit 10/24/2004 12:30p Kenyatta Pavonle, 401.1 Hypertension Benign N.P. Office Visit 11/20/2002 10:45a Marie Morales 789.01 Pain Abdominal RIGHT MD Sheree Upper Quadrant Office Visit 11/13/2002 10:45a Marie Morales 789.00 Pain Abdominal Unspec MD Sheree Site 575.10 Cholecystitis Unspec Office Visit 04/27/2002 4:15p Gustavo Neville MD 466.0 Bronchitis Acute 381.01 Otitis Media Serous Acute Office Visit 09/05/2001 3:00p Gustavo Neville MD 466.0 Bronchitis Acute Office Visit 05/09/2001 2:45p Gustavo Neville MD Plan of Treatment Future Appointment(s):11/11/2018 8:35 am - Schedule, Laboratory at [facility]2018 8:30 am - Baldev Alvarado 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 at [facility]05/16/2018 - Baldev Alvarado NPI10 Essential (primary) hypertensionNew Labs:Basic (BMP), Scheduled: Comments:Continue Diovan HCT.Consider following BPs at home, bring readings to next scheduled appointment.Continue to avoid excess sodium. Continue to attempt to increase daily exercise. Will notify of lab results.Follow up:6 months for WTM, routine f/u, fasting labs 1 week [id number] Mixed hyperlipidemiaNew Labs:Lipid, Scheduled: 11/11/18Comments:Continue to attempt low fat, low cholesterol diet.Increase weight bearing exercise. Continue Simvastatin.Increase oatmeal and fish [id number] Gastro-esophageal reflux disease without esophagitisComments:Recommend restart Omeprazole for no more than 2 weeks if symptoms recur.Continue diet [id number] Generalized anxiety disorderComments:Continue current dose of Venlafaxine Discussed possibility of weaning at some time in the jgluusA32.9 Vitamin D deficiency, unspecifiedNew Labs:Vit D 25Oh, Scheduled: 11/11/18Comments:Increase supplement to about 5000 units daily.Will recheck level today and continue to follow [id number] Solitary pulmonary noduleComments:Scheduled for PFTs and CT in September 2018Z68.31 Body mass index (BMI) 31.0-31.9, adultComments:Healthy well balanced diet with limited portions and increased daily exercise.
[2018-05-18 19:16] VITALS: BP 138/72
--- NOTE | 2018-05-19 07:35 | PN ---
Progress Note - Progress Note Date of Service: 05/19/18 Note: radiology read xray in morning elbow: IMPRESSION: COMMINUTED DISPLACED INTRA-ARTICULAR FRACTURE OF THE RADIAL HEAD. called patient at 7:35 and spoke with patient. explained results. offered to have sling at front office associate put patient declined. is a patient of dr gunter so said will call office today and get appointment and sling from them.
== END 2018-05-18 19:15 | disposition home or self-care (01) ==
LOC: ED 16:38
DX: S52.122A Displaced fracture of head of left radius, initial encounter for closed fracture (principal); M79.601 Pain in right arm; Z91.81 History of falling; W00.0XXA Fall on same level due to ice and snow, initial encounter; Y92.9 Unspecified place or not applicable
CPT/HCPCS: 99281; J1885

== ENCOUNTER 2018-05-31 12:04 | Day surgery (SDC) | payer OTHER ==
--- NOTE | 2018-05-27 03:24 | HP ---
PREOPERATIVE HISTORY AND PHYSICAL: DATE OF ADMISSION: 05/31/[address] [facility] CHIEF COMPLAINT: Right elbow pain. HISTORY OF PRESENT ILLNESS: Samantha is a 62-year-old female who fell onto her right elbow after she slipped on some ice in her driveway. She was seen at the [facility] and had an x-ray which showed a comminuted fracture of her radial head. She is unable to supinate her forearm. She had a CT scan which shows again a comminuted displaced fracture of her radial head with a large fragment blocking her rotation. She denies other injury. She presents for radial head replacement on the right elbow. PAST MEDICAL HISTORY: Hypertension, hypercholesterolemia, and anxiety. PAST SURGICAL HISTORY: Carpal tunnel release. MEDICATIONS: 1. Venlafaxine HCl 37.5 mg 1 p.o. p.r.n. 2. Simvastatin 20 mg p.o. daily. 3. Valsartan/hydrochlorothiazide 160/12.5 mg p.o. daily. ALLERGIES: No known drug allergies. FAMILY HISTORY: Heart disease and hypercholesterolemia. SOCIAL HISTORY: She lives with her spouse. She just retired. She has never smoked cigarettes. Occasionally consumes alcohol and exercises sporadically. REVIEW OF SYSTEMS: Positive for night sweats. Negative for cephalic, cardiovascular, respiratory, gastrointestinal, genitourinary, other musculoskeletal, skin, neurologic, endocrine, and hematologic symptoms. PHYSICAL EXAMINATION GENERAL: She is a healthy appearing, very pleasant woman, in minimal distress at rest. VITAL SIGNS: Her height is 59 inches, weighs 160 pounds. Pulse 66, blood pressure 144/78. HEENT: Exam is unremarkable. Her eye movements are concentric. NECK: She has good range of motion of her neck without pain. No masses are palpated. LUNGS: Clear to auscultation. Good inspiratory effort. No wheezing. CARDIAC: Regular rate and rhythm without murmur. PERIPHERAL VASCULAR: She has palpable pulses and no peripheral edema. EXTREMITIES: She has some ecchymosis around her right elbow. She has mild swelling in her elbow and hand. She cannot supine past neutral. She has intact pronation. Elbow flexion and extension are uncomfortable and limited. NEUROLOGICAL: She is alert and oriented without focal deficit. IMPRESSION: Comminuted displaced fracture of the right radial head. PLAN: Plan is for a right radial head replacement. The surgical procedure, risks, and benefits were explained to the patient and she agrees to proceed. I will see her back in followup approximately 10 days postop. [id number]/[facility] #: [id number] DENA
[~2018-05-31 12:04] MED LIST: Buffered Lidocaine 0.9% SYRIN* 5 ML/SYR SYRINGE INTRADERM ONE; Lactated Ringers 1000 ML Bag* 1,000 ML IV SCH; Sodium Citrate/Citric Acid* 15 ML UDC PO ONE
[2018-05-31] MEDS ORDERED: ceFAZolin 2 GM PREMIX in ORs 2 GM/50 ML BAG IVPB ONE (12:14)
[2018-05-31] MEDS ORDERED: Sodium Citrate/Citric Acid* 15 ML UDC ONE (12:15)
[2018-05-31] MEDS ORDERED: fentaNYL* 50 MCG/ML 2 ML VIAL (100 MCG VIAL) ONE (13:06)
[2018-05-31] MEDS ORDERED: Midazolam* 1 MG/ML 2 ML VIAL (2 MG) ONE (13:06)
[2018-05-31] MEDS ORDERED: Propofol* 10 MG/ML 20 ML BTL ONE (13:06)
[2018-05-31] MEDS ORDERED: ROPIVACAINE 5 MG/ML 30 ML BTL (0.5%) ONE (13:08)
[2018-05-31] MEDS ORDERED: fentaNYL* 50 MCG/ML 2 ML VIAL (100 MCG VIAL) IV PRN (14:40)
[2018-05-31] MEDS ORDERED: Naloxone* 0.4 MG/ML 1 ML VIAL IV PRN (14:40)
[2018-05-31] MEDS ORDERED: Ketorolac INJ* 30 MG/ML 1 ML VIAL IV PRN (14:40)
[2018-05-31] MEDS ORDERED: Ondansetron INJ* 2 MG/ML VIAL IV PRN (14:40)
[2018-05-31 15:46] VITALS: BP 145/66
--- NOTE | 2018-05-31 22:45 | OP ---
DATE OF OPERATION: 05/31/18 - [facility] DATE OF : 51 SURGEON: Olivia Carrero MD MERCANTILE REPORTER: JAYME Ambrocio ANESTHESIA: Block plus general. PRE-OP DIAGNOSIS: Right radial head fracture, comminuted. POST-OP DIAGNOSIS: Right radial head fracture, comminuted. OPERATIVE PROCEDURE: Right radial head replacement. ESTIMATED BLOOD LOSS: Zero. TOURNIQUET TIME: About 40 minutes. INDICATION FOR PROCEDURE: Samantha is a 62-year-old female who fell and injured her right elbow. She has a tiny fracture of the tip of her coronoid process and a comminuted markedly displaced fracture of her radial head. This is confirmed by CT scan. She presents for radial head replacement. DESCRIPTION OF PROCEDURE: The patient was brought to the operating room and was given a block and general anesthetic. She was placed in the supine position on the operating table with a tourniquet around her right upper arm. Skin of the right upper extremity was prepped and draped in the usual sterile fashion. The upper extremity was exsanguinated and the tourniquet elevated to 250 mmHg. A longitudinal incision was made beginning just proximal to the lateral epicondyle and progressing distally past the radial head. Dissected through the subcutaneous tissue down to the extensor origin. This was split longitudinally giving us access to the radiocapitellar joint. The large fragments were removed. There were 3 main fragments and these were pieced back together and sized to a size 10-mm radial head. The remainder of the small fragments were removed with a rongeur and the wound was copiously irrigated with saline. There was some cartilage damage at the proximal radioulnar joint and some damage to the capitellar articular surface. The fracture fragment at the tip of the coronoid was visualized and well approximated to the main portion of the coronoid. Hohmann retractors were placed around the radial neck and a saw was used to make a perpendicular cut to the long axis of the radius. We then broached with a 5 and 6 mm stem for the radial head implant from [employer], but were unable to fully seat the 6-mm trial as there was a small fracture fragment visible and in order not to propagate it, I decided not to further broach. We trialed a 5-mm stem with a 10-mm head and this fit very nicely. There was good range of motion with flexion and extension and full pronation and supination. The trial implants were removed and the final implant size 5 stem and 10-mm head were placed with the secure screw and an x- ray was taken in the AP and lateral views, which showed the new radial head articulating perfectly with the capitellum in flexion and extension. The radiohumeral capsule was repaired with #1 Vicryl suture, extensor origin repaired with #1 Vicryl suture, subcutaneous tissue closed with 2-0 Vicryl suture, and the skin with skin nila. The wound was dressed with Xeroform, 4x4, Webril, and an Ti wrap. The patient tolerated the procedure well and was brought to the recovery room in good condition. [id number]/[facility] #: [id number] DENA
== END 2018-05-31 15:48 | disposition home or self-care (01) ==
LOC: OREAST 12:04
PROVIDERS: ATTEND Orthopaedic Surgery
DX: S52.121A Displaced fracture of head of right radius, initial encounter for closed fracture (principal); I10 Essential (primary) hypertension; E78.00 Pure hypercholesterolemia, unspecified; W00.0XXA Fall on same level due to ice and snow, initial encounter; Y92.89 Other specified places as the place of occurrence of the external cause; G89.18 Other acute postprocedural pain
CPT/HCPCS: 76000; 88304; 88311; A9270-GY; C1776; J0690; J2250; J2704; J2795; J3010